=== PATIENT | female | born 1980 | race African-American/Black ===

== ENCOUNTER 2016-06-21 21:44 | Emergency (ER) | payer OTHER ==
[2016-06-21 21:23] LABS: BASOPHIL# 0.1 X10e3 (0-0.3); BASOPHIL% 1.2 % (0-2.5); EOSINOPHIL# 0.1 X10e3 (0-0.7); EOSINOPHIL% 0.9 % (0.0-7.0); HEMATOCRIT 38.8 % (35.0-45.0); HEMOGLOBIN 12.9 gm/dL (12.0-16.0); LYMPHOCYTE# 3.5 X10e3 (1.0-3.5); LYMPHOCYTE% 42.7 % (17.0-45.0); MEAN CELL VOLUME 91.3 FL (83-96); MEAN CORPUSCULAR HEMOGLOBIN 30.4 PG (28-34); MEAN CORPUSCULAR HGB CONC 33.3 g/dL (30-36); MEAN PLATELET VOLUME 8.8 FL (6.5-11.5); MONOCYTE# 0.5 X10e3 (0-1.0); MONOCYTE% 5.6 % (3.0-12.0); NEUTROPHIL% 49.6 % (40-75); PLATELET COUNT 193 X10e3 (140-420); RED BLOOD COUNT 4.25 X10e (3.90-5.30); RED CELL DISTRIBUTION WIDTH 13.5 % (11.0-15.5); WHITE BLOOD COUNT 8.1 X10e3 (4.0-10.5)
[2016-06-21 21:27] LABS: DIFF IND NO
[2016-06-21 21:43] LABS: ALBUMIN SERUM 4.1 g/dL (3.5-5.0); ALKALINE PHOSPHATASE 58 U/L (32-92); ALT (SGPT) 17 U/L (10-40); AST (SGOT) 19 U/L (10-42); BILIRUBIN,TOTAL 0.9 mg/dL (0.2-2.0); BLOOD UREA NITROGEN 10 mg/dL (9-23); BUN/CREATININE RATIO 14.28; CALCIUM SERUM 9.3 mg/dL (8.4-10.2); CARBON DIOXIDE 23 mmol/L (22-31); CHLORIDE 106 mmol/L (100-111); CREATININE SERUM 0.7 mg/dL (0.6-1.4); GLOM FILT RATE Estimated 129.2 mL/min (>60); GLUCOSE FASTING 88 mg/dL (70-110); LIPASE 27 U/L (22-51); POTASSIUM 3.4 mmol/L (3.5-5.1); SODIUM 136 mmol/L (135-145)
[~2016-06-21 21:44] MED LIST: BACTRIM 400-801 TA1; BACTRIM DS TABL1 TAB PO; DIAZEPAM PO; DOLOBID500 MG PO; FLEXERIL10 MG PO; FLOMAX0.4 MG PO; IBUPROFEN800 MG PO; LISINOPRIL10 MG PO; MEDROL PO; PEPCID AC20 M2 PO; PERCOCET 5-3251 TAB PO; PERCOCET10 PO; PERCOCET5/325 PO; PREDNISONE PO; PRILOSEC20 M1 PO; PYRIDIUM PO; REGLAN PO; REGLAN10 MG PO; TAMIFLU75 M1 PO; TESSALON PERLE100 M1 PO; TYLOX 5/500 CAP1 CAP PO; ZOFRAN ODT4 MG/UDTAB PO; ZOFRAN8 MG PO
[2016-06-21 21:47] LABS: BILIRUBIN, DIRECT <0.1 mg/dL (0.0-0.2); BILIRUBIN,INDIRECT 0.8 mg/dL (0.0-0.9)
[2016-06-21 23:22] LABS: URINE SOURCE CLEAN CATCH
[2016-06-21 23:29] LABS: URINE APPEARANCE CLEAR; URINE BILIRUBIN NEG (NEG); URINE BLOOD NEG (NEG); URINE COLOR YELLOW; URINE GLUCOSE NEG (NEG); URINE KETONE NEG (NEG); URINE LEUKOCYTE ESTERASE TRACE (NEG); URINE NITRATE NEG (NEG); URINE PROTEIN NEG (NEG); URINE SPECIFIC GRAVITY 1.019 (1.003-1.035)
[2016-06-21 23:33] LABS: URBCS1 AUWI 0-2 /[HPF] (0-2); URINE BACTERIA AUWI NEG (NEGATIVE); URINE SQUAMOUS EPITHELIAL CELL OCC /[HPF]; UWBCS1 AUWI 0-2 (0-5)
[2016-06-21 23:35] LABS: CULTURE INDICATED? NO
== END 2016-06-21 23:58 | disposition home or self-care (01) ==
LOC: CED 21:44
DX: R11.2 Nausea with vomiting, unspecified (principal); F17.200 Nicotine dependence, unspecified, uncomplicated; Z88.8 Allergy status to other drugs, medicaments and biological substances
CPT/HCPCS: 80048; 80076; 81003; 83690; 84703; 85025; 96361; 96374; 99284; J2405